=== PATIENT | female | born 1935 | race Caucasian/White ===

== ENCOUNTER 2019-04-29 09:55 | Day surgery (SDC) | payer MEDICARE ==
[~2019-04-29 09:55] MED LIST: ACETAMINOPHEN 1,000 MG/100 ML BTL IVPB ONE; CEFAZOLIN 2 Gram 2 GM/50 ML BAG IVPB ONE
[2019-04-29] MEDS ORDERED: MORPHINE SULFATE 4 MG/ML VIAL IVP ONE (09:56)
[2019-04-29] MEDS ORDERED: PROPOFOL 10 MG/ML VIAL IV ONE (09:56)
[2019-04-29] MEDS ORDERED: FENTANYL PF 100MCG/2ML VIAL IV ONE (09:56)
[2019-04-29] MEDS ORDERED: ONDANSETRON HCL IV 4 MG/2 ML VIAL IVP ONE (09:56)
[2019-04-29] MEDS ORDERED: KETOROLAC 30 MG/ML VIAL IVP ONE (09:56)
[2019-04-29] MEDS ORDERED: DEXAMETHASONE 4 MG/ML 1ML VIAL IVP ONE (09:56)
[2019-04-29] MEDS ORDERED: LIDOCAINE 2% MDV (20MG/ML) 20ML VIAL IV ONE (09:56)
[2019-04-29 10:33] LABS: ABSOLUTE NEUTROPHIL COUNT 4.96; BASO % 0.3 % (0-6); EOS % 1.3 % (0-6); GRAN % 65.5 % (47-80); HEMATOCRIT 40.6 % (35.0-47.0); HEMOGLOBIN 13.3 gm/dl (11.6-16.0); LYMPH % 24.9 % (16-45); MEAN CORPUSCULAR HEMOGLOBIN 31.4 pg (27-33); MEAN CORPUSCULAR HGB CONC 32.8 g/dl (32-36); MEAN PLATELET VOLUME 10.6 fl (7.4-10.4); PLATELET COUNT 243 K/uL (130-400); RED BLOOD COUNT 4.23 M/uL (3.80-5.40); RED CELL DISTRIBUTION WIDTH 12.5 % (11.5-14.5); WHITE BLOOD COUNT W/O DIFF 7.6 K/uL (4.2-12.2)
[2019-04-29] MEDS ORDERED: RINGERS SOLUTION,LACTATED 1,000 ML IV ONE (10:46)
[2019-04-29 10:51] LABS: BLOOD UREA NITROGEN 19 mg/dL (8-23); CREATININE 0.6 mg/dL (0.5-0.9); EST GLOMERULAR FILTRATION RATE > 60 mL/min; GLUCOSE,RANDOM 104 mg/dL (74-109)
[2019-04-29] MEDS ORDERED: METHYLPREDNISOLONE 40MG/VIAL IU ONE (13:00)
[2019-04-29] MEDS ORDERED: MORPHINE SULFATE 5 MG/ML PREFILLED SYRINGE IM ONE (13:00)
[2019-04-29] MEDS ORDERED: BUPIVACAINE 0.5% W/EPI MPF 30 ML VIAL SQ ONE (13:00)
--- NOTE | 2019-04-30 15:40 | Operative Note ---
DATE OF SURGERY: 04/29/2019 PREOPERATIVE DIAGNOSIS: Internal derangement of the right knee. POSTOPERATIVE DIAGNOSES: 1. Fat pad impingement. 2. 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 OPERATION: 1. Right knee arthroscopy with chondroplasty of the medial femoral condyle. 2. Right knee arthroscopy with resection of impinging fat pad. SURGEON: Fito Lind M.D. ANESTHESIA: General. PREPARATION: Chloraprep. INDIVIDUAL CONSIDERATIONS: None. PROCEDURE: The patient was taken to the operating room and placed supine on the operating room table. She had a successful induction of a general anesthetic. The right lower extremity was prepped and draped in the usual fashion. The patient had a superior lateral inflow cannula placed. The skin was infiltrated with 0.5% Marcaine with epinephrine prior. A clear effusion was drained. The knee was inflated with normal saline. An inferior medial and an inferior lateral portal were made in a similar fashion. The arthroscope was introduced through the inferior lateral portal up into the pouch. The patellofemoral joint was normal, except for a fat pad impingement which was debrided. No loose bodies were seen in the pouch or either gutter medially. Her medial femoral condyle was basically 3 to 4 throughout. The unstable areas were smoothed with a shaver. The tibial plateau looked good. The meniscus was good, in the notch the cruciates were normal and the lateral compartment structures were normal. The knee was then irrigated out with saline to remove loose floating debris. The portals were closed with apoorva and 15 mL of 0.5% Marcaine with epinephrine along with 4 mg of morphine and 40 mg of Depo-Medrol were injected into the knee and a sterile bulky compressive dressing was applied. The patient tolerated the procedure well. The needle and sponge counts were correct. Estimated blood loss was minimal. She was taken back to recovery in good condition. There were no complications. YARELI
== END 2019-04-29 14:00 | disposition home or self-care (01) ==
LOC: SUR 09:55
PROVIDERS: ATTEND Orthopaedic Surgery
DX: M79.4 Hypertrophy of (infrapatellar) fat pad (principal); M94.261 Chondromalacia, right knee; I10 Essential (primary) hypertension; K21.9 Gastro-esophageal reflux disease without esophagitis
CPT/HCPCS: 80048; 85025; 93005; J1030; J1885; J2270; J2405; J7120

== ENCOUNTER 2019-09-15 08:20 | Inpatient (IN) | payer MEDICARE ==
[~2019-09-15 08:20] MED LIST changes: -ACETAMINOPHEN 1,000 MG/100 ML BTL IVPB ONE; +FAMOTIDINE 20MG TABLET PO ONE; +MECLIZINE 25 MG TABLET PO ONE; +METOCLOPRAMIDE 10 MG TABLET PO ONE; +VANCOMYCIN 1GM/200ML PREMIX 1 GM/200 ML PIGGYBACK IVPB ONE
[2019-09-15] MEDS ORDERED: LIDOCAINE 2% MDV (20MG/ML) 20ML VIAL IV ONE (08:21)
[2019-09-15] MEDS ORDERED: ROPIVACAINE HCL (NAROPIN) /PF 5MG/ML 20ML VIAL IV ONE (08:21)
[2019-09-15] MEDS ORDERED: MIDAZOLAM HCL 2MG/2ML VIAL IV ONE (08:21)
[2019-09-15] MEDS ORDERED: DEXAMETHASONE 4 MG/ML 1ML VIAL IVP ONE (08:21)
[2019-09-15] MEDS ORDERED: PROPOFOL 10 MG/ML VIAL IV ONE (08:21)
[2019-09-15 08:46] LABS: URINE APPEARANCE CLEAR; URINE BILIRUBIN SMALL (NEGATIVE); URINE BLOOD SMALL (NEGATIVE); URINE COLOR YELLOW; URINE KETONE NEGATIVE (NEGATIVE); URINE LEUKOCYTE ESTERASE NEGATIVE (NEGATIVE); URINE NITRITE NEGATIVE (NEGATIVE); URINE PROTEIN NEGATIVE (NEGATIVE); URINE UROBILINOGEN 0.2 E.U./dL (0.20 - 1.00)
[2019-09-15 08:56] LABS: URINE EPITHELIAL CELLS 0 - 2 (FEW); URINE HYALINE CAST 0 - 5 /lpf; URINE RBC 0 - 2 (NONE SEEN); URINE WBC 0 - 2 (0-2/hpf)
[2019-09-15] MEDS ORDERED: CELECOXIB 100 MG CAPSULE PO ONE (09:10)
[2019-09-15 09:26] LABS: ABO GROUP B; ANTIBODY SCREEN NEGATIVE (NEGATIVE); RH TYPE NEGATIVE
[2019-09-15] MEDS ORDERED: RINGERS SOLUTION,LACTATED 1,000 ML IV ONE (09:31)
[2019-09-15] MEDS ORDERED: DIPHENHYDRAMINE HCL 50 MG/ML VIAL IVP ONE (09:49)
[2019-09-15] MEDS ORDERED: BUPIVACAINE 0.5% W/EPI MPF 30 ML VIAL SQ ONE (11:39)
[2019-09-15] MEDS ORDERED: TRANEXAMIC ACID 1,000 MG/10 ML ML IU ONE (11:39)
[2019-09-15] MEDS ORDERED: TRANEXAMIC ACID 1,000 MG/10 ML ML IV ONE (11:40)
[2019-09-15] MEDS ORDERED: ACETAMINOPHEN W/ CODEINE 300MG/60MG TABLET PO PRN ×2 (12:30)
[2019-09-15] MEDS ORDERED: HYDROMORPHONE HCL 2 MG/ML VIAL IM PRN (12:30)
[2019-09-15] MEDS ORDERED: ONDANSETRON HCL IV 4 MG/2 ML VIAL IVP PRN (12:30)
[2019-09-15] MEDS ORDERED: MAGNESIUM HYDROXIDE 30 ML UDC PO PRN (12:30)
[2019-09-15] MEDS ORDERED: AL HYDROX/MAG HYDROX 30ML UD PO PRN (12:30)
[2019-09-15] MEDS ORDERED: DIPHENHYDRAMINE HCL 25 MG CAPSULE PO PRN (12:30)
[2019-09-15] MEDS ORDERED: KETOROLAC 30 MG/ML VIAL IVP PRN (12:30)
[2019-09-15] MEDS ORDERED: HYDROCODONE/APAP 10/325 TABLET PO PRN (12:30)
[2019-09-15] MEDS ORDERED: BISACODYL 10 MG SUPP RC PRN (12:30)
[2019-09-15] MEDS ORDERED: ZOLPIDEM TARTRATE 5 MG TABLET PO PRN (12:30)
[2019-09-15] MEDS ORDERED: ACETAMINOPHEN 325 MG TAB PO PRN (12:30)
[2019-09-15] MEDS ORDERED: NALOXONE 0.4 MG/1 ML VIAL IVP PRN (12:30)
--- NOTE | 2019-09-15 15:52 | Rehab Evaluation ---
Patient Information - Patient Information Diagnosis: R knee DJD Ordered Treatment: PT Evaluate and Treat Status: Initial Evaluation Surgery: Yes (R TKA) Date of Surgery: 09/15/19 Past Medical/Surgical Hx: PAST MEDICAL/SURGICAL HISTORY Past Surgical History RIGHT KNEE SCOPE 04-29-19 EGD C SCOPE LIBIA HYST PMH - Respiratory Hx Respiratory Disorders No Comment: a little sinus drainage PMH - Cardiovascular Hx Cardiovascular Disorders Yes Hx Hypertension Yes: ON MEDS WITH GOOD CONTROL Exercise Tolerance Fair PMH - Neuro Hx Neurological Disorders No PMH - GI Hx Gastrointestinal Disorders Yes Hx Gastroesophageal Reflux Yes Hx Hiatal Hernia Yes: PROBLEMS SWALLOWING CHOKES SOMETIMES Comment: has difficulty swallowing-even liquids for past 30+ yrs/ gets stretched occ PMH - Hx Genitourinary Disorders No PMH - Endocrine Hx Endocrine Disorders No Hx Diabetes No Hx Thyroid Disease No PMH - Musculoskeletal Hx Musculoskeletal Disorders Yes Hx Arthritis Yes: "LOTS" Comment: c/o rt thigh hurts alot too, from rt knee pain PMH - Psych Hx Psychiatric Problems Yes Hx Anxiety Yes: MINOR Hx Depression Yes PMH - Hematology/Oncology Hx Hematology/Oncology Yes Disorders Hx Bruising Yes: BRUISES EASILY Hx Cancer Yes: BCC SKIN Premorbid Status: Detail (The patient was independent with all mobility prior to surgery.) Social History: Detail (The patient lives alone in an apartment on the first level with no stairs at the enterance. The bathroom is equipped with : a walk in shower, standard toilet . Grab bars are present in the shower but not by the toilet. The patient has a front wheeled walker and standard cane.) Precautions: [place], Fall, Other (WBAT on the R LE) - Time With Patient Total Time Spent With Patient (Min): 30 Treatment Procedures: Detail (Initial Evaluation, low complexity) Subjective Information - Subjective Information Per Patient (The patient had complaints of R knee pain after ambulating but did not rate her pain using 0-10 pain scale.) Objective Data - Mental Status Patient Orientation: Oriented x3 - Visual Perception Appears within normal limits for therapeutic activities - ROM Not within normal limits (The patient's R knee AROM is limited s/p surgery. All other LE AROM was WNL.) - Strength/Tone Not within normal limits (The patient's LE strength was not tested however was functional) - Bed Mobility Independent (The patient required minimal PA lifting R LE with supine to and from sit transfer and verbal cues to use L LE to lift R LE.) - Transfers Independent (The patient was independent sit to and from stand transfer.) - Balance Balance Sitting: Good Balance Standing: Good - Gait Detail (The patient ambulated with front wheeled walker a distance of 11 feet x 2.WBAT on R LE with CG for safety. Pt. declined to ambulate in hallway due to R LE numbness .) Therapy Assessment - Therapy Assessment Detail (The patient was independent with transfers and required minimal assist with transfers and CG for safety with ambulation. PT will continue for 1-2 sessions until completion of inpt. PT goals.) Problem List - Problem List Physical Therapy Problem List: Detail (Decreased R knee AROM and decreased L LE strength) Goals - Goals Physical Therapy Goals: 1) The patient will ambulate household distances independently with front wheeled walker WBAT on R LE. 2) The patient will be independent with bed mobility. 3) The patient will demonstrate good understanding of stair climbing technique. 4) The patient will be independent with TKA HEP. Prognosis - Prognosis Good Plan - Plan Physical Therapy Plan: PT for 1-2 sessions for gait training on levels and instruction in HEP.
[2019-09-15] MEDS: POTASSIUM CHLORIDE/D5-0.9%NACL 20 MEQ/1,000 ML BAG IV SCH ×2 (18:08→21:39)
[2019-09-15] MEDS: CEFAZOLIN 2 Gram 2 GM/50 ML BAG IVPB SCH (18:09)
[2019-09-15] MEDS: DOCUSATE SODIUM 100 MG CAPSULE PO SCH (21:36)
[2019-09-15] MEDS: TRAMADOL HCL 50 MG TABLET PO PRN (21:36)
[2019-09-16] MEDS: CEFAZOLIN 2 Gram 2 GM/50 ML BAG IVPB SCH ×2 (03:05→12:40)
[2019-09-16] MEDS: TRAMADOL HCL 50 MG TABLET PO PRN ×2 (03:49→09:57)
[2019-09-16 06:44] LABS: HEMATOCRIT 31.5 % (35.0-47.0); HEMOGLOBIN 9.8 gm/dl (11.6-16.0)
[2019-09-16] MEDS: PANTOPRAZOLE SODIUM 40 MG TABLET PO SCH (06:50)
[2019-09-16 06:58] LABS: BLOOD UREA NITROGEN 19 mg/dL (8-23); CREATININE 0.6 mg/dL (0.5-0.9); EST GLOMERULAR FILTRATION RATE > 60 mL/min; GLUCOSE,RANDOM 116 mg/dL (74-109)
[2019-09-16] MEDS: DOXAZOSIN MESYLATE 2 MG TABLET PO SCH (09:56)
[2019-09-16] MEDS: CITALOPRAM 20 MG TABLET PO SCH (09:57)
[2019-09-16] MEDS: FERROUS SULFATE 325 MG TAB PO SCH (09:57)
[2019-09-16] MEDS: RIVAROXABAN 10 MG TABLET PO SCH (09:57)
[2019-09-16] MEDS: DOCUSATE SODIUM 100 MG CAPSULE PO SCH (09:57)
[2019-09-16] MEDS: POTASSIUM CHLORIDE/D5-0.9%NACL 20 MEQ/1,000 ML BAG IV SCH ×2 (10:01→13:40)
--- NOTE | 2019-09-16 11:19 | Physical Therapy Tx Note ---
Physical Therapy Tx Note - Treatment Note Tolerated: Good Total Time Spent With Patient: 20 Physical Therapy Tx Note: Detail (Patient was in bathroom with OT upon [facility]ER AND W[facility] arrival. Patient ambulated to bed with OT. Patient transferred stand to sit SBA x1. Patient transferred sit to and from stand independently. Patient scooted up in bed independently. Patient performed the following exercises x5- 10 reps each: ankle pumps, quad sets, glut squeezes, SLR with assist, heel slides, and hamstring sets. Patient instructed in using dog leash or belt to assist with SLR at home. Patient transferred supine to sit independently. Patient transferred sit to and from stand SBA x1. Patient ambulated 40 feet with wheeled walker SBA x1. Patient transferred sit to supine independently. Patient required assistance to move leg over in bed. Patient verbalized good understanding of stair climbing. Patient was left reclined in bed with cryo on knee and call light within reach. Patient passed all inpatient goals. Patient unable to ambulate very far due to knee pain. [facility] feels that patient would have difficulty getting up at home, ambulating, and taking care of herself alone.) Physical Therapy Problem List: Detail (Decreased R knee AROM and decreased L LE strength) Physical Therapy Goals: 1) The patient will ambulate household distances independently with front wheeled walker WBAT on R LE. Met. 2) The patient will be independent with bed mobility. Met. 3) The patient will demonstrate good understanding of stair climbing technique. Met. 4) The patient will be independent with TKA HEP. Prognosis: Good Physical Therapy Plan: Patient met all inpatient goals, discharged from inpatient PT at this time.
--- NOTE | 2019-09-16 11:49 | Rehab Evaluation ---
Patient Information - Patient Information Diagnosis: R knee DJD Ordered Treatment: OT Evaluate and Treat Status: Initial Evaluation Surgery: Yes (R TKA) Date of Surgery: 09/15/19 Past Medical/Surgical Hx: PAST MEDICAL/SURGICAL HISTORY Past Surgical History RIGHT KNEE SCOPE 04-29-19 EGD C SCOPE LIBIA HYST PMH - Respiratory Hx Respiratory Disorders No Comment: a little sinus drainage PMH - Cardiovascular Hx Cardiovascular Disorders Yes Hx Hypertension Yes: ON MEDS WITH GOOD CONTROL Exercise Tolerance Fair PMH - Neuro Hx Neurological Disorders No PMH - GI Hx Gastrointestinal Disorders Yes Hx Gastroesophageal Reflux Yes Hx Hiatal Hernia Yes: PROBLEMS SWALLOWING CHOKES SOMETIMES Comment: has difficulty swallowing-even liquids for past 30+ yrs/ gets stretched occ PMH - Hx Genitourinary Disorders No PMH - Endocrine Hx Endocrine Disorders No Hx Diabetes No Hx Thyroid Disease No PMH - Musculoskeletal Hx Musculoskeletal Disorders Yes Hx Arthritis Yes: "LOTS" Comment: c/o rt thigh hurts alot too, from rt knee pain PMH - Psych Hx Psychiatric Problems Yes Hx Anxiety Yes: MINOR Hx Depression Yes PMH - Hematology/Oncology Hx Hematology/Oncology Yes Disorders Hx Bruising Yes: BRUISES EASILY Hx Cancer Yes: BCC SKIN Premorbid Status: Detail (The patient was independent with all I/ADLs and functional mobility prior to surgery, including driving, groceries, and laundry.) Social History: Detail (The patient lives alone in a 1st floor apartment with no stairs at the entrance. The bathroom is equipped with a walk in shower with grab bars and has a shower chair that fits in her shower. The patient has a front wheeled walker and standard cane.) Precautions: [place], Fall, Other (WBAT on the R LE) - Time With Patient Total Time Spent With Patient (Min): 35 (1 eval, 1 self-care) Treatment Procedures: Detail Subjective Information - Subjective Information Per Patient (Pt states, "I'm worried about going home alone, my daughter will only be here to help until Saturday and I don't know how I'll take care of myself.") Objective Data - Pain Pain Present: Yes Pain Scale Used: Numeric (1 - 10) (8/10 w/ mvmt R knee) - Mental Status Patient Orientation: Oriented x3 - Visual Perception Appears within normal limits for therapeutic activities - ROM Within normal limits - Strength/Tone Within normal limits - Coordination Appears within normal limits for therapeutic activities - Bed Mobility Independent - Transfers Independent (With initial verbal cues for technique) - Balance Balance Sitting: Good Balance Standing: Fair - Sensation Intact - Gait Detail (Fxl mobility bedroom distances w/ FWW, slight instability noted throughout, likely d/t pain, verbal and tactile cues for safe FWW use/placement and continued cueing d/t fair follow thru.) - ADL's/IADL's Detail (Pt dons/doffs pants, socks, and loose shoes w/ increased time, effort, and pain at EOB w/ supervision for standing pant mgmt. Unable to don/doff tedhose at this time and states she has nobody to help her at home. Educated Pt on importance of shower chair, recommended hand-held shower and where to purchase, walker use, techs for laundry and kitchen safety.) Therapy Assessment - Therapy Assessment Detail (Pt able to complete most ADLs w/ increased time, effort, and pain, however currently unable to don/doff tedhose. Daughter only able to assist until Saturday and then Pt will have no further help. Pt may benefit from short rehab stay to increase independence w/ ADLs including use of adaptive equipment, to increase balance w/ standing ADLs and item retrieval, and to increase safe use of walker.) Patient Education - Patient Education Teaching Topic: Equipment Use, Other (modified techs and AE for LB dressing) Response: Return Demonstration, Verbalize Understanding Teaching Method: Discussion, Demonstration Teaching Recipient: Patient Barriers To Learning: None Problem List - Problem List Physical Therapy Problem List: Detail (Decreased R knee AROM and decreased L LE strength) Occupational Therapy Problem List: Detail (1) Decreased indep w/ LB dressing, incl. tedhose 2) Decreased safety awareness w/ FWW and slight instability during fxl mob/standing ADLs) Goals - Goals Physical Therapy Goals: 1) The patient will ambulate household distances independently with front wheeled walker WBAT on R LE. 2) The patient will be independent with bed mobility. 3) The patient will demonstrate good understanding of stair climbing technique. 4) The patient will be independent with TKA HEP. Occupational Therapy Goals: 1) Pt will be MOD I to don/doff compression socks, socks, underwear, pants w/ AE as needed. 2) Pt will be MOD I w/ ADL item retrieval, incl. safe walker use and safety awareness Prognosis - Prognosis Good Plan - Plan Physical Therapy Plan: PT for 1-2 sessions for gait training on levels and instruction in HEP. Occupational Therapy Plan: Pt may benefit from 1-2 more sessions skilled IP OT to address goals.
[2019-09-16] MEDS: HYDROCODONE/APAP 10/325 TABLET PO PRN ×2 (15:52→20:24)
[2019-09-17] MEDS: DOCUSATE SODIUM 100 MG CAPSULE PO SCH ×3 (00:56→22:37)
[2019-09-17] MEDS: HYDROCODONE/APAP 10/325 TABLET PO PRN ×6 (00:56→22:36)
[2019-09-17] MEDS: PANTOPRAZOLE SODIUM 40 MG TABLET PO SCH (06:29)
[2019-09-17 06:39] LABS: HEMATOCRIT 30.9 % (35.0-47.0)
[2019-09-17 06:53] LABS: BLOOD UREA NITROGEN 13 mg/dL (8-23); CREATININE 0.5 mg/dL (0.5-0.9); EST GLOMERULAR FILTRATION RATE > 60 mL/min; GLUCOSE,RANDOM 127 mg/dL (74-109)
[2019-09-17] MEDS: POTASSIUM CHLORIDE/D5-0.9%NACL 20 MEQ/1,000 ML BAG IV SCH ×2 (08:12→22:12)
[2019-09-17] MEDS: DOXAZOSIN MESYLATE 2 MG TABLET PO SCH ×2 (08:44→09:17)
[2019-09-17] MEDS: CITALOPRAM 20 MG TABLET PO SCH (09:14)
[2019-09-17] MEDS: FERROUS SULFATE 325 MG TAB PO SCH (09:16)
[2019-09-17] MEDS: RIVAROXABAN 10 MG TABLET PO SCH (09:20)
--- NOTE | 2019-09-17 10:41 | Operative Note ---
DATE OF SURGERY: 09/15/2019 PREOPERATIVE DIAGNOSIS: End-stage arthrosis of the right knee. POSTOPERATIVE DIAGNOSIS: End-stage arthrosis of the right knee. OPERATION: Cemented right total knee arthroplasty using Ponce [employer] Nephew components with a size 4 Legion femoral component, a size 3 stemmed tibia baseplate, a 9 mm lipped tibial insert, and a 29 mm all-plastic patella. STAFF SURGEON: Fito Lind MD ANESTHESIA: Spinal. PREPARATION: Chloraprep. INDIVIDUAL CONSIDERATIONS: None. PROCEDURE: The patient was taken to the operating room, placed supine on the operating room table. She had a successful induction of a spinal anesthetic. The right lower extremity was prepped and draped in the usual fashion. The patient had a midline approach to the knee. The limb was elevated and tourniquet was inflated to 250 mmHg. Sharp dissection carried down through skin and subcutaneous tissue. Small veins were coagulated with a Bovie. A medial arthrotomy was performed. The patella was everted and the knee was flexed. The patient had quite a bit of exposed bone medially. Fat pad was resected, ACL was sacrificed, and provisional anterior meniscectomies were performed. The capsule was released from the medial proximal tibia. The initial femoral pilot plant technician hole was then made freehand. The intramedullary femoral cutting jig was placed. It was cut in 7.0 degrees of valgus and adjusted for rotation and secured with pins for a 10 mm resection. The initial transverse cut was then made. The skin guide was placed in the anterior and posterior pilot plant technician holes. It was found that a size 4 would be appropriate. The pilot plant technician holes were drilled in 3 degrees of external rotation. The anterior and posterior cuts followed by chamfer cuts were made. A size 4 trial was placed and found to fit well. The tibia was brought forward, and the remainder of the meniscal remnants removed with a Bovie. The extraarticular tibial cutting jig was placed. It was cut in neutral with a 3-degree AP slope. Care was taken to adjust for rotation and flexion using the extraarticular alignment guide and bony landmarks. It was found that a size 3 would be appropriate. It was set for a 9 mm resection keyed off the high lateral side and secured with pins. When cutting the tibia, care was taken to preserve the PCL insertion on the tibia. After removing osteophytes, I could fit a size 3. It was adjusted for rotation and secured with pins. With a 9 mm trial and femoral trial, there was excellent motion and stability. Ligamentous balance and rotation alignment were thought to be normal. The tibial keel stamp was impacted and the femoral pilot plant technician holes were impacted, and these trial components were removed. The patient had a thick patella and roughly 9 mm of bone was removed freehand. I was easily able to fit a 29 patella. The 3 patellar pilot plant technician holes were drilled. The tourniquet was let down briefly to get bleeders posteriorly and then placed back up again. After thorough irrigation, the bony surfaces were dried. A size 3 stemmed tibia baseplate was cemented into place followed by impaction of the 9 mm lipped tibial insert followed by cementing in the size 4 cobalt chrome femur followed by cementing in the 29 mm all-plastic patella. The implant surfaces were compressed. After the cement had set, I noticed that the medial collateral ligament off the femur had pulled off a large piece of bone, basically in a wafer. After irritation, I went ahead and just secured this with three 3.0 cannulated screws and washers. Once this was restored, there was total ligamentous balance and full motion. The tourniquet was let down briefly to get bleeders and then final irrigation. The skin, subcu, and capsule were infiltrated with 30 mL of 0.5% Marcaine with epinephrine. The capsule was closed with a running #2 quill, subcu was closed in layers with running 0 quill, skin was closed with apoorva. An 18-gauge spinal needle was placed in the joint and 30 mL of saline mixed with 1 g of tranexamic acid was injected into the knee. A sterile bulky compressive ANNE-type dressing was applied. The patient tolerated the procedure well. Needle and sponge counts were correct. Estimated blood loss was minimal, and she was taken back to recovery in good condition. There were no complications. YARELI
--- NOTE | 2019-09-17 13:20 | RADIOLOGY REPORT ---
EXAMINATION: Single View Chest EXAM DATE: 09/17/2019 12:50 PM TECHNIQUE: Single view chest INDICATION: Care facility placement COMPARISON: None. FINDINGS: Single AP portable view. Mild bilateral atelectasis. Question of very small right pleural effusion. N ormal heart size with atherosclerotic aortic arch calcifications. IMPRESSION: 1. Mild bilateral atelectasis suspected. 2. Question of very small right pleural effusion. Dictated by: Ryan Diamond MD on 09/17/2019 1:17 PM. .
[2019-09-18] MEDS: HYDROCODONE/APAP 10/325 TABLET PO PRN ×3 (02:38→10:22)
[2019-09-18] MEDS: POTASSIUM CHLORIDE/D5-0.9%NACL 20 MEQ/1,000 ML BAG IV SCH (06:34)
[2019-09-18] MEDS: PANTOPRAZOLE SODIUM 40 MG TABLET PO SCH (06:35)
--- NOTE | 2019-09-18 08:57 | Discharge Summary ---
DATE OF ADMISSION: 09/15/2019 DATE OF DISCHARGE: 09/18/2019 DATE OF SURGERY: 09/15/2019 HISTORY: Rachael is a delightful 83-year-old female who presents with end stage arthrosis of the right knee. She was admitted after right total knee arthroplasty. Postoperative she did well. Her hospital course is unremarkable. Her discharge hemoglobin was 10 and she did not require a transfusion. The plan is to transfer her to rehab. She will be given one Vicodin 10/325 as needed for pain. She will be given Xarelto followed by aspirin for DVT prophylaxis. She should continue her Xarelto 10 mg daily for five days postoperatively and then switch to one regular 325 aspirin daily for thirty days. The sutures should be removed in fourteen days. She has a waterproof dressing that will allow her to shower. It should be replaced if needed, if not it can just remain with the vacuum unit attached and then after seven days all of it can be removed and it will be okay for her to get the wound wet in the shower, but no baths, swimming or hot tub for at least 3-4 weeks. She should follow-up in my office in a month. FINAL DIAGNOSIS: END STAGE ARTHROSIS OF THE RIGHT KNEE. OPERATIONS AND PROCEDURES: Cemented right total knee arthroplasty. DISCHARGE CONDITION: Good. JOB NUMBER: [id number] MTDD
[2019-09-18] MEDS: CITALOPRAM 20 MG TABLET PO SCH (09:15)
[2019-09-18] MEDS: FERROUS SULFATE 325 MG TAB PO SCH (09:15)
[2019-09-18] MEDS: DOCUSATE SODIUM 100 MG CAPSULE PO SCH (09:15)
[2019-09-18] MEDS: DOXAZOSIN MESYLATE 2 MG TABLET PO SCH (09:15)
[2019-09-18] MEDS: RIVAROXABAN 10 MG TABLET PO SCH (09:18)
[2019-09-18] MEDS ORDERED: ONDANSETRON 4 MG ODT TABLET SL ONE (10:20)
== END 2019-09-18 10:32 | DRG 470 ==
LOC: SUR 08:20 → MEDSURG 08:20 → EDSTATUS 13:00 → SUR 13:35 → MEDSURG 13:35 → UNDOADMIN 13:35 → MEDSURG 13:35 → UNDODISIN 09-18 10:32
PROVIDERS: ADMIT Orthopaedic Surgery; ATTEND Orthopaedic Surgery
PROC: 0SRC069 Replacement of Right Knee Joint with Oxidized Zirconium on Polyethylene Synthetic Substitute, Cemented, Open Approach (ICD-10-PCS; principal; 2019-09-15 11:00)
DX: M17.11 Unilateral primary osteoarthritis, right knee (principal); I10 Essential (primary) hypertension; K21.9 Gastro-esophageal reflux disease without esophagitis
CPT/HCPCS: 71045; 76942; 80048; 81001; 85014; 85018; 86850; 86900; 86901; C1713; C1776; J1200; J1885; J3370; J3480; J7120